=== PATIENT | female | born 1985 | race Caucasian/White ===

== ENCOUNTER 2017-10-16 05:46 | Inpatient (IN) | payer OTHER ==
[~2017-10-16] VITALS: Ht 172.7 cm; Wt 81.4 kg
[~2017-10-16 05:46] MED LIST: PRENATAL TABLE1 EAC3 PO; PROBIOTIC1 EAC2 PO; TYLENOL EXTRA500 MG PO
[2017-10-16 06:03] VITALS: BP 118/76
[2017-10-16 06:14] LABS: HEMATOCRIT 39.7 % (36.0-46.0); HEMOGLOBIN 14.1 G/DL (11.9-15.5); MCH 31.5 PG (29.0-34.0); MCHC 35.5 G/DL (30.0-36.0); MCV 88.8 FL (83-99); PLATELET COUNT 290 K/uL (156-360); RBC DIS.WIDTH-CV 12.8 % (11.8-14.6); RBC DIS.WIDTH-SD 41.7 % (39-53); RED BLOOD COUNT 4.47 M/uL (3.80-5.20); WHITE BLOOD COUNT 9.4 K/uL (4.1-10.2)
[2017-10-16] MEDS ORDERED: ENDOCET 5-3251 EACH PO (09:48)
[2017-10-16] MEDS ORDERED: IBUPROFEN800 MG PO (09:48)
[2017-10-16 11:55] VITALS: BP 123/68
[2017-10-16 12:45] VITALS: BP 120/69
[2017-10-16 14:40] VITALS: BP 114/73
[2017-10-16 17:07] VITALS: BP 104/74
[2017-10-16 19:56] VITALS: BP 113/74
[2017-10-17 06:41] LABS: BASOPHIL (%) 0.4 % (0-1); BASOPHIL COUNT 0.1 K/uL (0-0.1); EOSINOPHIL (%) 0.7 % (0-5); EOSINOPHIL COUNT 0.1 K/uL (0-0.3); HEMATOCRIT 36.3 % (36.0-46.0); HEMOGLOBIN 12.3 G/DL (11.9-15.5); IMMATURE GRANULOCYTE (%) 0.6 % (0.0-0.7); LYMPHOCYTE (%) 22.6 % (15-42); LYMPHOCYTE COUNT 2.8 K/uL (1.0-2.8); MCH 30.1 PG (29.0-34.0); MCHC 33.9 G/DL (30.0-36.0); MONOCYTE (%) 8.4 % (3-12); NEUTROPHIL (%) 67.3 % (45-76); NEUTROPHIL COUNT 8.2 K/uL (1.8-6.4); PLATELET COUNT 257 K/uL (156-360); RBC DIS.WIDTH-CV 12.6 % (11.8-14.6); RBC DIS.WIDTH-SD 41.1 % (39-53); RED BLOOD COUNT 4.08 M/uL (3.80-5.20); WHITE BLOOD COUNT 12.2 K/uL (4.1-10.2)
[2017-10-17 07:44] VITALS: BP 105/64
[2017-10-17 12:11] VITALS: BP 111/67
[2017-10-17 15:14] VITALS: BP 120/71
== END 2017-10-17 18:10 | disposition home or self-care (01) | DRG 766 ==
LOC: 2WEST 05:46 → 2SOUTH 12:20 → 2WEST 10-17 18:10
PROVIDERS: Obstetrics & Gynecology
PROC: 10D00Z1 Extraction of Products of Conception, Low, Open Approach (ICD-10-PCS; principal; 2017-10-16)
DX: O34.211 Maternal care for low transverse scar from previous cesarean delivery (principal); O99.353 Diseases of the nervous system complicating pregnancy, third trimester; G43.909 Migraine, unspecified, not intractable, without status migrainosus; Z3A.39 39 weeks gestation of pregnancy; Z37.0 Single live birth; Z87.74 Personal history of (corrected) congenital malformations of heart and circulatory system; Z82.49 Family history of ischemic heart disease and other diseases of the circulatory system; Z80.3 Family history of malignant neoplasm of breast
CPT/HCPCS: 82948; 85025; 85027; 86850; 86900; 86901; J0690; J1885; J2274; J2405; J3010; J7120